=== PATIENT | female | born 1955 | race Caucasian/White ===

== ENCOUNTER 2017-06-16 03:37 | Emergency (ER) | payer MEDICARE, OTHER ==
[~2017-06-16] VITALS: Ht 162.6 cm; Wt 60.0 kg
[~2017-06-16 03:37] MED LIST: ACET1CAP PO; CLON1 PO; CYAN1000P IM; FOLI1 PO; FOSA70TA PO; LORTA5 PO; PRED10 PO; SULF500T35 PO; VALA500T PO; VITA5000 PO; XANA0.5T PO; ZANT300T PO
[2017-06-16 04:09] VITALS: BP 138/63; PULSE 101; RESP 22; TEMP 97.9
[2017-06-16] MEDS ORDERED: MORPHINE SULFATE 4 MG/ML INJ IV PUSH ONE (04:30)
[2017-06-16] MEDS ORDERED: SODIUM CHLORIDE 0.9% FLUSH 10 ML FLUSH IVF PRN (04:30)
[2017-06-16] MEDS ORDERED: ALEN1TAB48 PO (04:33)
[2017-06-16] MEDS ORDERED: ALPR0.5T3 PO (04:33)
[2017-06-16 04:35] VITALS: O2SAT 96
--- NOTE | 2017-06-16 04:37 | PD ---
HPI Chief Complaint: Fall Time Seen by Provider: 04:20 Travel History International Travel<30 days: No Contact w/Intl Traveler<30days: No Traveled to known affect area: No History of Present Illness HPI The patient is a 61-year-old female that fell and complains of severe right hip pain. She fell approximately 3:00. This was a non-syncopal fall, she lost balance and fell. She denies any other injury. PFSH Past Medical History Cancer: Yes (SKIN CA ) Cardiovascular Problems: Yes (BEEN DX MANY YEARS AGO WITH IRREGULAR HR SVT) Diabetes: No Endocrine: No Gastrointestinal Disorders: Yes (CHROHNS,GERD, GASTRITIS, SEVERE NAUSEA) Genitourinary: No Hepatitis: No Hiatal Hernia: Yes Immune Disorder: Yes (CHRON'S DISEASE, HERPES) Medical other: Yes (GENITAL HERPES, Pernicious anemia) Musculoskeletal: Yes (ARTHRITIS, OSTEOPOROSIS) Neurologic: No Psychiatric: Yes (CLAUSTROPHOBIC, PANIC ATTACKS) Reproductive: No Respiratory: Yes (SMOKES 1 PPD) Thyroid Disease: No Tetanus Vaccination: > 5 Years Influenza Vaccination: Yes ?: Not Past Surgical History Abdominal Surgery: Yes (SEVERAL BOWEL RESECTIONS (1984 X 2, 1985,1999) SECONDARTY TO CHRONES) AICD: No Gynecologic Surgery: Yes (HYSTERECTOMY 1985) Hysterectomy: Yes Joint Replacement: No Oral Surgery: Yes (TONSILLECTOMY 1959') Pacemaker: No Thoracic Surgery: Yes (BENIGN LUMP REMOVED IN 1973) Tonsillectomy: Yes Other Surgery: Yes (LUMPECTOMY) Social History Alcohol Use: Yes (WEEKENDS) Tobacco Use: Yes (1 PPD) Substance Use: No Allergies-Medications (Allergen,Severity, Reaction): Coded Allergies: hydromorphone (Verified Allergy, Severe, 06/16/17) phenobarbital (Verified Allergy, Severe, CONFUSION, 06/16/17) HALLUCINATIONS caffeine (Verified Allergy, Intermediate, Hives, 06/16/17) HALLUCINATIONS ergotamine (Verified Allergy, Intermediate, Hives, 06/16/17) HALLUCINATIONS buprenorphine (Verified Allergy, Mild, Nausea/Vomiting, 06/16/17) CAUSES SVT hydroxyzine (Verified Adverse Reaction, Unknown, SEVERE FLUSHING, UNABLE TO SLEEP, 06/16/17) Uncoded Allergies: ANTIDEPRESSENTS (Adverse Reaction, Severe, CONFUSION, 10/05/13) SECONAL (Adverse Reaction, Severe, BURNING OF THE SKIN, CONFUSION, 10/05/13) Reported Meds & Prescriptions Reported Meds & Active Scripts Active Vitamin B12 (Cyanocobalamin) 1,000 Mcg/Ml Inj 1,000 Mcg IM Q30D INJECTS MID MONTH Klonopin (Clonazepam) 1 Mg Tab 1 Mg PO HS PRN Reported Alprazolam 0.5 Mg Tab 0.5 Mg PO BID PRN Alendronate (Alendronate Sodium) 70 Mg Tab 70 Mg PO Q7D Hydrocodone/Acetaminophen 5 mg/325 mg 1 Tab Tab 1 Tab PO Q4H PRN Deltasone (Prednisone) 10 Mg Tab 10 Mg PO DAILY Zantac (Ranitidine HCl) 300 Mg Tab 300 Mg PO HS Valacyclovir Hcl (Valacyclovir HCl) 500 Mg Tab 500 Mg PO HS Vitamin D-3 (Cholecalciferol) 5,000 Unit Tab 5,000 Unit PO DAILY Folate 1 Mg Tab (Folic Acid) 1 Mg Tab 1 Mg PO DAILY Sulfasalazine 500 Mg Tab 500 Mg PO BID Review of Systems Except as stated in HPI: all other systems reviewed are Neg Physical Exam Narrative GENERAL: The patient is anxious, alert, oriented 3 in moderate apparent distress with her right hip discomfort. Her vital signs show heart rate of 101 and respirations of 22 but otherwise are normal. SKIN: Focused skin assessment warm/dry. HEAD: Atraumatic. Normocephalic. EYES: Pupils equal and round. No scleral icterus. No injection or drainage. ENT: No nasal bleeding or discharge. Mucous membranes pink and moist. NECK: Trachea midline. No JVD. CARDIOVASCULAR: Regular rate and rhythm. No murmur appreciated. RESPIRATORY: No accessory muscle use. Clear to auscultation. Breath sounds equal bilaterally. GASTROINTESTINAL: Abdomen soft, non-tender, nondistended. Hepatic and splenic margins not palpable. MUSCULOSKELETAL: No obvious deformities. No clubbing. No cyanosis. No edema. There is tenderness to movement over the right hip but very little tenderness directly over the right hip. No foreshortening is present. Good capillary refill and pinprick is present distally on the right foot. NEUROLOGICAL: Awake and alert. No obvious cranial nerve deficits. Motor grossly within normal limits. Normal speech. PSYCHIATRIC: Appropriate mood and affect; insight and judgment normal. Data Data Last Documented VS Vital Signs Date Time Temp Pulse Resp B/P (MAP) Pulse Ox O2 Delivery O2 Flow Rate FiO2 06/16/17 04:35 96 Room Air 06/16/17 04:13 99 22 06/16/17 04:09 97.9 138/63 (88) Orders Orders Electrocardiogram (06/16/17 04:25) Complete Blood Count With Diff (06/16/17 04:25) Comprehensive Metabolic Panel (06/16/17 04:25) Prothrombin Time / Inr (Pt) (06/16/17 04:25) Act Partial Throm Time (Ptt) (06/16/17 04:25) Urinalysis - C+S If Indicated (06/16/17 04:25) Hip, Uni(Ap&Lat) W Ap Pelvis (06/16/17 04:25) Iv Access Insert/Monitor (06/16/17 04:25) Oximetry (06/16/17 04:25) Ecg Monitoring (06/16/17 04:25) Morphine Inj (Morphine Inj) (06/16/17 04:30) Sodium Chloride 0.9% Flush (Ns Flush) (06/16/17 04:30) Labs Laboratory Tests Test 06/16/17 04:54 White Blood Count 10.9 TH/MM3 Red Blood Count 3.97 MIL/MM3 Hemoglobin 11.4 GM/DL Hematocrit 35.3 % Mean Corpuscular Volume 89.0 FL Mean Corpuscular Hemoglobin 28.7 PG Mean Corpuscular Hemoglobin Concent 32.3 % Red Cell Distribution Width 14.7 % Platelet Count 202 TH/MM3 Mean Platelet Volume 7.4 FL Neutrophils (%) (Auto) 78.3 % Lymphocytes (%) (Auto) 14.5 % Monocytes (%) (Auto) 5.5 % Eosinophils (%) (Auto) 1.1 % Basophils (%) (Auto) 0.6 % Neutrophils # (Auto) 8.5 TH/MM3 Lymphocytes # (Auto) 1.6 TH/MM3 Monocytes # (Auto) 0.6 TH/MM3 Eosinophils # (Auto) 0.1 TH/MM3 Basophils # (Auto) 0.1 TH/MM3 CBC Comment DIFF FINAL Differential Comment Sodium Level 140 MEQ/L Potassium Level 3.1 MEQ/L Chloride Level 107 MEQ/L MDM Medical Decision Making Medical Screen Exam Complete: Yes Emergency Medical Condition: Yes Medical Record Reviewed: Yes Interpretation(s) X-rays show an acute fracture of the right pubis. Differential Diagnosis Fractured hip, contusion hip, fracture pubic ramus Narrative Course The patient has point tenderness of the right pubis, she does have an acute fracture there. She strongly wants to go home. She is told to use a walker and otherwise stay in bed except to prepare meals and go to the bathroom. She should follow-up with her primary care physician this week. She is given Percocet 10. The patient states she has used a high-dose antibiotics and Percocet 10 as a only thing that works for her. Diagnosis Primary Impression: Fracture of right pubis Additional Instructions: As we discussed, get a walker and use a walker to eat meals and go to the bathroom. He pretty much have to stay in bed and let it heal up. Follow-up with her primary care physician this week. Do not drink alcohol or drive on the Percocet 10. Med/Other Pt SpecificInfo: Prescription(s) given Scripts Oxycodone-Acetaminophen (Percocet) 10-325 mg Tab 1 TAB PO Q6H Y for PAIN, #30 TAB 0 Refills Prov: Edilson Sandhu MD 06/16/17 Disposition: 01 DISCHARGE HOME Condition: Edilson Victor MD Jun 16, 2017 04:37
[2017-06-16 05:06] LABS: AUTOMATED NEUTROPHIL # 8.5 TH/MM3 (1.8-7.7); BASOPHIL # 0.1 TH/MM3 (0-0.2); BASOPHIL % 0.6 % (0.0-2.0); EOSINOPHIL # 0.1 TH/MM3 (0-0.4); EOSINOPHIL % 1.1 % (0.0-4.0); HEMATOCRIT 35.3 % (35.0-46.0); HEMOGLOBIN 11.4 GM/DL (11.6-15.3); LYMPH % 14.5 % (9.0-44.0); LYMPHOCYTE # 1.6 TH/MM3 (1.0-4.8); MEAN CORPUSCULAR HEMOGLOBIN 28.7 PG (27.0-34.0); MEAN CORPUSCULAR HGB CONC 32.3 % (32.0-36.0); MEAN PLATELET VOLUME 7.4 FL (7.0-11.0); MONO % 5.5 % (0.0-8.0); MONOCYTE # 0.6 TH/MM3 (0-0.9); NEUT % 78.3 % (16.0-70.0); PLATELET COUNT 202 TH/MM3 (150-450); RED BLOOD COUNT 3.97 MIL/MM3 (4.00-5.30); RED CELL DISTRIBUTION WIDTH 14.7 % (11.6-17.2); WHITE BLOOD COUNT 10.9 TH/MM3 (4.0-11.0)
--- NOTE | 2017-06-16 05:08 | RADRPT ---
EXAM DATE/TIME: 06/16/2017 04:30 [facility] COMPARISON: No previous studies available for comparison. INDICATIONS : Right hip pain after falling. MEDICAL HISTORY : None. SURGICAL HISTORY : None. ENCOUNTER: Initial ACUITY: 1 day PAIN SCORE: 8/10 LOCATION: Right hip FINDINGS: 3 views of the pelvis and right hip show a questionable acute fracture involving the right pubis. Und erlying osteopenia noted. Right hip is intact. Surgical clips associated with the bowel structures. CONCLUSION: Questionable acute fracture involving the right pubis. Raffaele Menezes Jr., MD on June 16, 2017 at 5:06 Board Certified Radiologist. This report was verified electronically.
[2017-06-16 05:13] LABS: CHLORIDE 107 MEQ/L (98-107); SODIUM (NA) 140 MEQ/L (136-145)
[2017-06-16 05:18] LABS: ALBUMIN 3.4 GM/DL (3.4-5.0); BICARBONATE 22.5 MEQ/L (21.0-32.0); CALCIUM 8.9 MG/DL (8.5-10.1); GLUCOSE,RANDOM 108 MG/DL (74-106)
[2017-06-16 05:19] LABS: BLOOD UREA NITROGEN 9 MG/DL (7-18)
[2017-06-16] MEDS ORDERED: PERC10TA27 PO (05:20)
[2017-06-16 05:21] LABS: ALT (GPT) 17 U/L (10-53); AST (GOT) 22 U/L (15-37)
[2017-06-16 05:22] LABS: CREATININE 0.69 MG/DL (0.50-1.00); GLOMERULAR FILTRATION RATE 86 ML/MIN (>89)
[2017-06-16 05:23] LABS: TOTAL BILIRUBIN ADULT 0.3 MG/DL (0.2-1.0); TOTAL PROTEIN 7.6 GM/DL (6.4-8.2)
[2017-06-16 05:24] LABS: ALKALINE PHOSPHATASE 119 U/L (45-117)
[2017-06-16 05:28] VITALS: BP 103/47; PULSE 100; RESP 16; TEMP 97.8; O2SAT 100
[2017-06-16] MEDS ORDERED: oxyCODONE/ACETAMINOPHEN 10 MG/325 MG TAB PO ONE (05:30)
[2017-06-16 06:43] VITALS: BP 94/53
--- NOTE | 2017-06-16 09:03 | EKG ---
Date Performed: 06/16/2017 Time Performed: 05:09:32 PTAGE: 61 years EKG: Baseline artifact present Sinus rhythm NORMAL ECG No significant change from prior electrocardiogram. PREVIOUS TRACING : 10/05/2013 13.58 DOCTOR: Thierry Fernando Interpretating Date/Time 06/16/2017 09:01:22
== END 2017-06-16 06:47 | disposition home or self-care (01) ==
LOC: PHED 03:37
DX: S32.501A Unspecified fracture of right pubis, initial encounter for closed fracture (principal); R00.0 Tachycardia, unspecified; K50.90 Crohn's disease, unspecified, without complications; F17.200 Nicotine dependence, unspecified, uncomplicated; Z86.79 Personal history of other diseases of the circulatory system; Z87.19 Personal history of other diseases of the digestive system; Z87.39 Personal history of other diseases of the musculoskeletal system and connective tissue; W18.39XA Other fall on same level, initial encounter
CPT/HCPCS: 73502; 80053; 85025; 93005; 99284